=== PATIENT | female | born 1955 | race Caucasian/White ===

== ENCOUNTER 2018-09-27 10:25 | Emergency (ER) | payer MEDICARE, MEDICAID ==
--- NOTE | 2018-09-27 10:49 | Emergency Department Record ---
History of Present Illness - General Chief Complaint: Headache Migraine Stated Complaint: YOST/BLURRY VISION Time Seen by Provider: 09/27/18 10:35 Source: Patient Mode of Arrival: Ambulatory Limitations: No limitations - History of Present Illness Initial Comments: 62 yo female presents with a headache with some double vision the last four days. Complaint: Headache Onset/Timin -: Days(s) Location: Frontal Severity: Mild Severity scale (1-10): 3 Quality: Aching Consistency: Constant Improves With: Other Worsens With: None Treatments Prior to Arrival: None - Related Data Home Medications Medication Instructions Recorded Confirmed Last Taken Albuterol Sulfate [Proair Hfa] 1 - 2 puff IH .EVERY 4-6 HOURS PRN 09/27/1809/27 Unknown Budesonide [Budesonide EC] 3 mg PO DAILY 09/27/18 09/27/18 Unknown Calcium Carbonate [Calcium] 600 mg PO BID 09/27/18 09/27/18 Unknown Carboxymethylcellulose Sodium 15 ml OP QAM 09/27/18 09/27/18 Unknown [Refresh Tears] Cholecalciferol (Vitamin D3) 50,000 unit PO WEEKLY 09/27/18 09/27/18 Unknown [Vitamin D3] Clozapine [Clozapine Odt] 450 mg PO QHS 09/27/18 09/27/18 Unknown Cyanocobalamin (Vitamin B-12) 1,000 mcg IJ MONTHLY 09/27/18 09/27/18 Unknown [Cyanocobalamin Injection] Divalproex Sodium [Depakote] 250 mg PO QHS 09/27/18 09/27/18 Unknown Fenofibrate Nanocrystallized 145 mg PO DAILY 09/27/18 09/27/18 Unknown [Fenofibrate] Folic Acid 1 mg PO DAILY 09/27/18 09/27/18 Unknown Folic Acid 1 mg PO DAILY 09/27/18 09/27/18 Unknown Latanoprost 0.005% Opth Kelly 2.5 ml OP DAILY 09/27/18 09/27/18 Unknown [Xalatan] Sertraline HCl [Zoloft] 50 mg PO DAILY 09/27/18 09/27/18 Unknown Travel Screening - Travel/Exposure Within Last 30 Days Have you traveled within the last 30 days?: No Past Medical History - SOCIAL HISTORY Smoking Status: Current every day smoker Alcohol Use: None Drug Use: None - RESPIRATORY Hx Respiratory Disorders: No - CARDIOVASCULAR Hx Cardio Disorders: No - NEURO Hx Neuro Disorders: No - GI Hx GI Disorders: Yes Hx Crohn's Disease: Yes - Hx Genitourinary Disorders: No - ENDOCRINE Hx Endocrine Disorders: Yes Hx Diabetes: (pre-diabetes) - MUSCULOSKELETAL Hx Musculoskeletal Disorders: No - PSYCH Hx Psych Problems: Yes Hx Anxiety: Yes Hx Depression: Yes Comment:: paranoid schizophrenic - HEMATOLOGY/ONCOLOGY Hx Hematology/Oncology Disorders: No Family Medical History Any Significant Family History?: No Course Vital Signs 09/27/18 10:29 Temperature 98.2 F Pulse Rate 95 H Respiratory 16 Rate Blood Pressure 133/88 Pulse Ox 97 Medical Decision Making - Lab Data Result diagrams: 09/27/18 10:35 09/27/18 10:35 Disposition Quality - Blood Pressure Screening Does Patient Have Any of the Following: No Blood Pressure Classification: Pre-Hypertensive BP Reading Systolic Measurement: 133 Diastolic Measurement: 88 Screening for High Blood Pressure: < Pre-Hypertensive BP, F/U Documented > [ G8950]
--- NOTE | 2018-09-27 10:54 | Emergency Department Record ---
History of Present Illness - General Chief complaint: Headache Migraine Stated complaint: YOST/BLURRY VISION Time Seen by Provider: 09/27/18 10:35 Source: Patient Mode of Arrival: Ambulatory Limitations: No limitations - History of Present Illness Initial comments: 62 yo female presents with four days of intermittent double vision. The onset was Thursday morning upon waking up. She states she notices it many times in a day. Normally it will last seconds at a time then resolve. No loss of vision. No pain with eye movements. No significant headaches. No pain with chewing food. No druze tenderness or scalp tenderness. Last night she reports she had some pressure feeling in the forehead for a couple hours. No other head pain. No dizziness. No nausea. No vomiting. No speech issues, ear ringing, coordination difficulties. Eye doctor is at [facility]. PCP is Dr Sheppard. chief complaint: Vision change Onset/Timin -: Days(s) (4) Onset Description: Awoke with symptoms (Thursday) Place: Home Eye Symptoms: Blurry vision, Other (Double) Severity: Mild Severity scale (1-10): 3 Consistency: Constant Associated Symptoms: None Treatments Prior to Arrival: None - Related Data Home Medications Medication Instructions Recorded Confirmed Last Taken Albuterol Sulfate [Proair Hfa] 1 - 2 puff IH .EVERY 4-6 HOURS PRN 09/27/1809/27 Unknown Budesonide [Budesonide EC] 3 mg PO DAILY 09/27/18 09/27/18 Unknown Calcium Carbonate [Calcium] 600 mg PO BID 09/27/18 09/27/18 Unknown Carboxymethylcellulose Sodium 15 ml OP QAM 09/27/18 09/27/18 Unknown [Refresh Tears] Cholecalciferol (Vitamin D3) 50,000 unit PO WEEKLY 09/27/18 09/27/18 Unknown [Vitamin D3] Clozapine [Clozapine Odt] 450 mg PO QHS 09/27/18 09/27/18 Unknown Cyanocobalamin (Vitamin B-12) 1,000 mcg IJ MONTHLY 09/27/18 09/27/18 Unknown [Cyanocobalamin Injection] Divalproex Sodium [Depakote] 250 mg PO QHS 09/27/18 09/27/18 Unknown Fenofibrate Nanocrystallized 145 mg PO DAILY 09/27/18 09/27/18 Unknown [Fenofibrate] Folic Acid 1 mg PO DAILY 09/27/18 09/27/18 Unknown Folic Acid 1 mg PO DAILY 09/27/18 09/27/18 Unknown Latanoprost 0.005% Opth Kelly 2.5 ml OP DAILY 09/27/18 09/27/18 Unknown [Xalatan] Sertraline HCl [Zoloft] 50 mg PO DAILY 09/27/18 09/27/18 Unknown Allergies Allergy/AdvReac Type Severity Reaction Status Date / Time cetirizine [From Zyrtec] Allergy RASH Verified 09/27/18 10:56 gentamicin Allergy SWELLING Verified 09/27/18 10:56 (GENERAL) ranitidine [From Zantac] Allergy PT UNSURE Verified 09/27/18 10:56 OF REACTION triamcinolone Allergy RASH Verified 09/27/18 10:56 azithromycin AdvReac WEAKNESS Verified 09/27/18 10:56 [From Zithromax Z-Jeff] fluoxetine [From Prozac] AdvReac IRRITABILIT Verified 09/27/18 10:56 Y meloxicam [From Mobic] AdvReac BLACK STOOL Verified 09/27/18 10:56 prednisolone AdvReac IRRITABILIT Verified 09/27/18 10:56 Y rosuvastatin [From Crestor] AdvReac DIZZINESS Verified 09/27/18 10:56 sulfamethoxazole AdvReac BLACK STOOL Verified 09/27/18 10:56 [From Bactrim] trimethoprim [From Bactrim] AdvReac BLACK STOOL Verified 09/27/18 10:56 Travel Screening - Travel/Exposure Within Last 30 Days Have you traveled within the last 30 days?: No Review of Systems Constitutional: Denies: Chills, Fever, Malaise, Weakness, Other Eyes: Reports: Vision change. Denies: Eye discharge, Eye pain, Photophobia ENT: Denies: Congestion, Throat pain Respiratory: Denies: Cough Cardiovascular: Denies: Chest pain, Palpitations, Syncope Endocrine: Denies: Fatigue Gastrointestinal: Denies: Abdominal pain, Diarrhea, Nausea, Vomiting Genitourinary: Denies: Dysuria Musculoskeletal: Denies: Arthralgia, Back pain, Joint swelling Skin: Denies: Bruising, Change in color, Rash Neurological: Reports: Headache (Forehead pressure last night. NO other headache, scalp pain or tenderness.). Denies: Abnormal gait, Confusion, Numbness, Paresthesias, Seizure, Tingling, Tremors, Vertigo, Weakness Psychiatric: Denies: Anxiety Hematological/Lymphatic: Denies: Easy bleeding, Easy bruising Past Medical History - SOCIAL HISTORY Smoking Status: Current every day smoker Alcohol Use: None Drug Use: None - RESPIRATORY Hx Respiratory Disorders: No - CARDIOVASCULAR Hx Cardio Disorders: No - NEURO Hx Neuro Disorders: No - GI Hx GI Disorders: Yes Hx Crohn's Disease: Yes - Hx Genitourinary Disorders: No - ENDOCRINE Hx Endocrine Disorders: Yes Hx Diabetes: (pre-diabetes) - MUSCULOSKELETAL Hx Musculoskeletal Disorders: No - PSYCH Hx Psych Problems: Yes Hx Anxiety: Yes Hx Depression: Yes Comment:: paranoid schizophrenic - HEMATOLOGY/ONCOLOGY Hx Hematology/Oncology Disorders: No Family Medical History Any Significant Family History?: No Physical Exam - General General Appearance: Alert, Oriented x3, Cooperative, No acute distress Limitations: No limitations - Head Head exam: Atraumatic, Normocephalic, Normal inspection - Eye Eye exam: Normal appearance, PERRL, EOMI. negative: Conjunctival injection, Nystagmus, Periorbital swelling Pupils: Normal accommodation. negative: Irregular, Unequal - ENT ENT exam: Normal exam, Mucous membranes moist Ear exam: Normal external inspection Nasal Exam: Normal inspection Mouth exam: Normal external inspection - Neck Neck exam: Normal inspection - Respiratory Respiratory exam: Normal lung sounds bilaterally. negative: Respiratory distress - Cardiovascular Cardiovascular Exam: Regular rate, Normal rhythm, Normal heart sounds - GI/Abdominal GI/Abdominal exam: Soft. negative: Tenderness - Rectal Rectal exam: Deferred - exam: Deferred - Extremities Extremities exam: Normal inspection - Neurological Neurological exam: Alert, CN II-XII intact, Normal gait, Oriented X3. negative : Abnormal gait, Altered, Motor sensory deficit - Psychiatric Psychiatric exam: Normal affect, Normal mood - Skin Skin exam: Dry, Intact, Normal color, Warm Course Vital Signs 09/27/18 10:29 Temperature 98.2 F Pulse Rate 95 H Respiratory 16 Rate Blood Pressure 133/88 Pulse Ox 97 - Reevaluation(s) Reevaluation #1: No headaches or jaw claudication to suggest giant cell arteritis The double vision is fleeting lasting seconds then resolves with focusing on an object No other neurologic signs or symptoms on exam or history 09/27/18 10:55 The labs results were reviewed There are no acute significant abnormalities of the CBC There are no acute significant abnormalities of the CMP The CRP is 0.08 09/27/18 11:32 The [facility] is 20/20 both eyes 09/27/18 11:39 09/27/18 11:42 ESR is 5 09/27/18 11:[address] scan was negative for acute process. No mass, hemorrhage, or stroke findings. 09/27/18 11:54 [facility] Eye Care was contacted An appointment was made with Dr Null at the [facility] Medical Decision Making - Lab Data Result diagrams: 09/27/18 11:00 09/27/18 11:00 Disposition Disposition: Discharge Clinical Impression: Diplopia Disposition: Home, Self-Care Condition: (1) Good Instructions: Diplopia (ED) Additional Instructions: You have an appointment with Dr Zamarripas at 3:15pm in the [facility] building The address is [address] The phone number is [phone] Forms: Patient Portal Access Time of Disposition: 11:56 Quality - Quality Measures Quality Measures: N/A - Blood Pressure Screening Does Patient Have Any of the Following: No Blood Pressure Classification: Hypertensive Reading Systolic Measurement: 131 Diastolic Measurement: 97 Screening for High Blood Pressure: < Pre-Hypertensive BP, F/U Documented > [ G8950] Pre-Hypertensive Follow-up Interventions: Referral to alternative/primary care provider.
[2018-09-27 11:04] LABS: BASO % 0.5 % (0-6); EOS % 0.7 % (0-6); GRAN % 60.6 % (47-80); HEMATOCRIT 43.7 % (35.0-47.0); HEMOGLOBIN 14.2 gm/dl (11.6-16.0); LYMPH % 32.2 % (16-45); MEAN CELL VOLUME 93.8 fl (81-97); MEAN CORPUSCULAR HEMOGLOBIN 30.5 pg (27-33); MEAN CORPUSCULAR HGB CONC 32.5 g/dl (32-36); MEAN PLATELET VOLUME 8.4 fl (7.4-10.4); PLATELET COUNT 468 K/uL (130-400); RED BLOOD COUNT 4.66 M/uL (3.80-5.40); RED CELL DISTRIBUTION WIDTH 14.2 % (11.5-14.5); WHITE BLOOD COUNT W/O DIFF 9.6 K/uL (4.2-12.2)
[2018-09-27 11:15] LABS: BLOOD UREA NITROGEN 14 mg/dL (8-23); EST GLOMERULAR FILTRATION RATE > 60 mL/min
[2018-09-27 11:16] LABS: TOTAL PROTEIN 7.5 g/dL (6.6-8.7)
[2018-09-27 11:17] LABS: PARTIAL THROMBOPLASTIN TIME 27.3 SECONDS (24.5-39.1); PROTHROMBIN TIME (PATIENT) 9.6 SECONDS (9.5-12.1)
[2018-09-27 11:18] LABS: GLUCOSE,RANDOM 113 mg/dL (74-109)
[2018-09-27 11:21] LABS: ALB/GLOB RATIO 1.8 (1.1-1.8); ALBUMIN 4.8 g/dL (4.0-5.0); ALKALINE PHOSPHATASE 42 U/L (35-104); ALT/SGPT 15 U/L (<33); AST/SGOT 18 U/L (10.0-35.0); C-REACTIVE PROTEIN 0.08 mg/dL (<0.5)
[2018-09-27 11:38] LABS: ERYTHROCYTE SEDIMENTATION RATE 5 mm/hr (0-30)
== END 2018-09-27 12:38 | disposition home or self-care (01) ==
LOC: ER 10:25
DX: H53.2 Diplopia (principal); H53.8 Other visual disturbances; R51 Headache; F17.210 Nicotine dependence, cigarettes, uncomplicated
CPT/HCPCS: 70450; 80053; 80164; 85025; 85610; 85651; 85730; 86140; 99283; 99284

== ENCOUNTER 2019-07-20 13:56 | Emergency (ER) | payer MEDICARE, MEDICAID ==
--- NOTE | 2019-07-20 14:36 | Emergency Department Record ---
History of Present Illness - General Chief complaint: Eye Problem Stated complaint: DOUBLE VISION, Time Seen by Provider: 07/20/19 14:25 Mode of Arrival: Ambulatory - History of Present Illness Initial comments: double vision started yesterday and headache started thursday and she had double vision once before september 2018 and evaluated by [facility] and [facility] opthamology and went away in [address]. [address] Jo Sheppard in [place] on [address] . Seen at urgent care in [place] 2 days ago and told she had sinusitis and started on cefdinir 300 mg BID. No other neuro findings and talking and walking appropriately. Onset/Timin -: Days(s) Onset Description: Awoke with symptoms Location: Both eyes Place: Home If Injury: None Associated Symptoms: None Treatments Prior to Arrival: Other - Related Data Home Medications Medication Instructions Recorded Confirmed Last Taken Cefdinir [Omnicef] 300 mg PO BID 07/20/19 07/20/19 07/20/19 Allergies Allergy/AdvReac Type Severity Reaction Status Date / Time cetirizine [From Zyrtec] Allergy RASH Verified 07/20/19 14:07 gentamicin Allergy SWELLING Verified 07/20/19 14:07 (GENERAL) ranitidine [From Zantac] Allergy PT UNSURE Verified 07/20/19 14:07 OF REACTION triamcinolone Allergy RASH Verified 07/20/19 14:07 azithromycin AdvReac WEAKNESS Verified 07/20/19 14:07 [From Zithromax Z-Jeff] fluoxetine [From Prozac] AdvReac IRRITABILIT Verified 07/20/19 14:07 Y meloxicam [From Mobic] AdvReac BLACK STOOL Verified 07/20/19 14:07 prednisolone AdvReac IRRITABILIT Verified 07/20/19 14:07 Y rosuvastatin [From Crestor] AdvReac DIZZINESS Verified 07/20/19 14:07 sulfamethoxazole AdvReac BLACK STOOL Verified 07/20/19 14:07 [From Bactrim] trimethoprim [From Bactrim] AdvReac BLACK STOOL Verified 09/27/18 10:56 Travel/Exposure Screening - Travel/Exposure Within Last 30 Days Have you traveled within the last 30 days?: No - Travel/Exposure Within Last Year Have you traveled outside the [place] in the last year?: No - Additonal Travel/Exposure Details Have you been exposed to anyone with a communicable illness?: No - Travel Symptoms Symptom Screening: None Review of Systems Reviewed: No additional complaints except as noted below Constitutional: Reports: As per HPI. Denies: Chills, Fever, Malaise, Night sweats, Weakness, Weight change Eyes: Reports: As per HPI. Denies: Eye discharge, Eye pain, Photophobia, Vision change ENT: Reports: As per HPI. Denies: Congestion, Dental pain, Ear pain, Epistaxis, Hearing loss, Throat pain Respiratory: Reports: As per HPI. Denies: Cough, Dyspnea, Hemoptysis, Stridor, Wheezes Cardiovascular: Reports: As per HPI. Denies: Arrhythmia, Chest pain, Dyspnea on exertion, Edema, Murmurs, Orthopnea, Palpitations, Paroxysmal nocturnal dyspnea, Rheumatic Fever, Syncope Endocrine: Reports: As per HPI. Denies: Fatigue, Heat or cold intolerance, Polydipsia, Polyuria Gastrointestinal: Reports: As per HPI. Denies: Abdominal pain, Constipation, Diarrhea, Hematemesis, Hematochezia, Melena, Nausea, Vomiting Genitourinary: Reports: As per HPI. Denies: Abnormal menses, Discharge, Dyspareunia, Dysuria, Frequency, Hematuria, Incontinence, Retention, Urgency Musculoskeletal: Reports: As per HPI. Denies: Arthralgia, Back pain, Gout, Joint swelling, Myalgia, Neck pain Skin: Reports: As per HPI. Denies: Bruising, Change in color, Change in hair/nails, Lesions, Pruritus, Rash Neurological: Reports: As per HPI, Headache (mild slight pressure), Other (double visiion). Denies: Abnormal gait, Confusion, Numbness, Paresthesias, Seizure, Tingling, Tremors, Vertigo, Weakness Psychiatric: Reports: As per HPI. Denies: Anxiety, Auditory hallucinations, Depression, Homicidal thoughts, Suicidal thoughts, Visual hallucinations Hematological/Lymphatic: Reports: As per HPI. Denies: Anemia, Blood Clots, Easy bleeding, Easy bruising, Swollen glands Past Medical History - SOCIAL HISTORY Smoking Status: Current every day smoker Alcohol Use: None Drug Use: None - RESPIRATORY Hx Respiratory Disorders: No - CARDIOVASCULAR Hx Cardio Disorders: No - NEURO Hx Neuro Disorders: No - GI Hx GI Disorders: Yes Hx Crohn's Disease: Yes - Hx Genitourinary Disorders: No - ENDOCRINE Hx Endocrine Disorders: Yes Hx Diabetes: (pre-diabetes) - MUSCULOSKELETAL Hx Musculoskeletal Disorders: No - PSYCH Hx Psych Problems: Yes Hx Anxiety: Yes Hx Depression: Yes Comment:: paranoid schizophrenic - HEMATOLOGY/ONCOLOGY Hx Hematology/Oncology Disorders: No Family Medical History Any Significant Family History?: No Physical Exam - General General Appearance: Alert, Oriented x3, Cooperative, No acute distress - Head Head exam: Normal inspection - Eye Eye exam: Normal appearance, PERRL (eyes are lined up nicely , corneal reflex is symmetrical), EOMI Pupils: Normal accommodation - ENT ENT exam: Normal exam, Mucous membranes moist, Normal external ear exam, Normal orophraynx, TM's normal bilaterally Ear exam: Normal external inspection. negative: External canal tenderness Nasal Exam: Normal inspection. negative: Discharge, Sinus tenderness Mouth exam: Normal external inspection, Tongue normal Teeth exam: Normal inspection. negative: Dental caries Throat exam: Normal inspection. negative: Tonsillar erythema, Tonsillar exudate - Neck Neck exam: Normal inspection, Full ROM. negative: Tenderness - Respiratory Respiratory exam: Normal lung sounds bilaterally. negative: Respiratory distress - Cardiovascular Cardiovascular Exam: Regular rate, Normal rhythm, Normal heart sounds - GI/Abdominal GI/Abdominal exam: Soft, Normal bowel sounds. negative: Tenderness - Rectal Rectal exam: Deferred - exam: Deferred - Extremities Extremities exam: Normal inspection, Full ROM, Normal capillary refill. negative: Tenderness - Back Back exam: Reports: Normal inspection, Full ROM. Denies: Muscle spasm, Rash noted, Tenderness - Neurological Neurological exam: Alert, Normal gait, Oriented X3, Reflexes normal - Psychiatric Psychiatric exam: Normal affect, Normal mood - Skin Skin exam: Dry, Intact, Normal color, Warm Course Vital Signs 07/20/19 14:10 Temperature 97.8 F Pulse Rate 94 H Respiratory 18 Rate Blood Pressure 146/89 Pulse Ox 97 - Reevaluation(s) Reevaluation #1: Patient [facility] opthamalogy told her to call them if the double vision happens again and she is planning to call [facility] 07/20/19 15:38 Medical Decision Making - Data Complexity MDM Data: Labs Ordered and/or Reviewed, X-Ray Ordered and/or Reviewed (CT head negative) - Lab Data Result diagrams: 07/20/19 14:55 02/12/20 14:55 Disposition Clinical Impression: Double vision with both eyes open Disposition: Home, Self-Care Condition: (1) Good Instructions: Diplopia (ED) Additional Instructions: follow up with primary DR to get back into [facility] to check her vision again close one eye ,patch one eye Forms: Patient Portal Access Time of Disposition: 15:34 Quality - Quality Measures Quality Measures: N/A - Blood Pressure Screening Does Patient Have Any of the Following: No Blood Pressure Classification: Pre-Hypertensive BP Reading Systolic Measurement: 146 Diastolic Measurement: 89 Screening for High Blood Pressure: < Pre-Hypertensive BP, F/U Documented > [G8950] Pre-Hypertensive Follow-up Interventions: Referral to alternative/primary care provider.
[2019-07-20 15:03] LABS: ABSOLUTE NEUTROPHIL COUNT 7.24; BASO % 0.2 % (0-6); EOS % 0.6 % (0-6); GRAN % 66.6 % (47-80); HEMATOCRIT 40.6 % (35.0-47.0); LYMPH % 25.9 % (16-45); MEAN CELL VOLUME 93.3 fl (81-97); MEAN CORPUSCULAR HEMOGLOBIN 29.9 pg (27-33); MEAN PLATELET VOLUME 8.3 fl (7.4-10.4); MONO % 6.7 % (0-9); PLATELET COUNT 430 K/uL (130-400); RED BLOOD COUNT 4.35 M/uL (3.80-5.40); RED CELL DISTRIBUTION WIDTH 13.8 % (11.5-14.5); WHITE BLOOD COUNT W/O DIFF 10.9 K/uL (4.2-12.2)
--- NOTE | 2019-07-20 15:14 | CT SCAN REPORT ---
EXAMINATION: CT Head without IV Contrast EXAM DATE: 07/20/2019 3:10 PM TECHNIQUE: Standard protocol CT images of the head were obtained without intravenous contrast. Hamilton l and sagittal reconstructed images were created. INDICATION: double vision COMPARISON: September 27, 2018 HAND DOMINANCE: Unknown. ENCOUNTER: Not applicable FINDINGS: 1. There is no intracranial mass, midline shift, extraaxial fluid collection or hemorrhage. 2. Mild global cortical volume loss. 3. Mild chronic small vessel ischemic changes. Intracranial atheromatous changes are present. No acu te loss of caro-white differentiation. 4. There is no fracture. 5. The visualized aspects of the orbits, paranasal sinuses, and mastoid air cells are normal. IMPRESSION: No acute intracranial abnormality. Chronic changes as above. Dictated by: Jermain Garza MD on 07/20/2019 3:11 PM. .
[2019-07-20 15:16] LABS: CREATININE 1.1 mg/dL (0.5-0.9)
== END 2019-07-20 15:50 | disposition home or self-care (01) ==
LOC: ER 13:56
DX: H53.2 Diplopia (principal); R73.03 Prediabetes; R51 Headache; F17.210 Nicotine dependence, cigarettes, uncomplicated
CPT/HCPCS: 70450; 80048; 85025; 99284